=== PATIENT | male | born 1980 | race American Indian/Alaskan Native ===

== ENCOUNTER 2018-07-08 23:20 | Emergency (ER) | payer OTHER ==
[2018-07-08 23:35] VITALS: BP 135/86; PULSE 77; RESP 16; TEMP 98.1; O2SAT 98
--- NOTE | 2018-07-09 00:43 | C.PDOC ---
History Of Present Illness 38 year old male presents to the ER after he tripped while going up the stairs and landed on his right arm. Patient is now complaining of pain to the right wrist and hand. Denies weakness, numbness, or other complaints. Time Seen by Provider: 07/08/18 23:43 Chief Complaint (Nursing): Upper Extremity Problem/Injury History Per: Patient History/Exam Limitations: no limitations Onset/Duration Of Symptoms: Hrs Current Symptoms Are (Timing): Still Present Exacerbating Factor(s): Movement Recent travel outside of the [place]: No Past Medical History Reviewed: Historical Data, Nursing Documentation, Vital Signs Vital Signs: Last Vital Signs Temp 98.1 F 07/08/18 23:30 Pulse 77 07/08/18 23:30 Resp 16 07/08/18 23:30 BP 135/86 07/08/18 23:30 Pulse Ox 98 07/08/18 23:30 Family History: States: Unknown Family Hx - Social History Hx Alcohol Use: Yes Hx Substance Use: No - Immunization History Hx Influenza Vaccination: No Hx Pneumococcal Vaccination: No Review Of Systems Musculoskeletal: Positive for: Other (Left wrist pain, Left hand pain) Neurological: Negative for: Weakness, Numbness Physical Exam - Physical Exam Appears: Non-toxic Skin: Normal Color, Warm, Dry Head: Atraumatic, Normacephalic Eye(s): bilateral: Normal Inspection Extremity: Capillary Refill (<2 seconds), Other (Tenderness and swelling to radial aspect of left wrist dorsally. ROM of wrist causes pain. No snuffbox tenderness. ) Pulses: Left Radial: Normal, Right Radial: Normal Neurological/Psych: Oriented x3, Normal Speech, Normal Motor, Normal Sensation ED Course And Treatment O2 Sat by Pulse Oximetry: 98 (Room air) Pulse Ox Interpretation: Normal - Other Rad Left wrist x-ray X-Ray: Interpreted by Me, Viewed By Me Interpretation: Questionable scaphoid fracture Progress Note: Left wrist x-ray ordered, results showed a questionable scaphoid fracture. Motrin administered for pain. Patient placed in volar splint with sling by CP and checked by me, will discharge home with instructions to follow up with hand specialist. Disposition Counseled Patient/Family Regarding: Diagnosis, Need For Followup, Rx Given - Disposition Referrals: Francisca Saldana MD [Staff Provider] - Disposition: HOME/ ROUTINE Disposition Time: 00:44 Condition: GOOD Additional Instructions: Please follow up with Hand surgeon MOTRIN FOR PAIN KEEP ARM ELEVATED RETURN TO ER IF WORSE Prescriptions: Ibuprofen [Motrin Tab] 800 mg PO QID #20 tab Instructions: Hand Fracture (DC) Forms: [employer] (Wallisian) Print Language: HONDURAN - Clinical Impression Clinical Impression: Hand fracture, right - PA / [employer] / Resident Statement MD/DO has reviewed & agrees with the documentation as recorded. - Scribe Statement The provider has reviewed the documentation as recorded by the Scriblucy Denson All medical record entries made by the Lupeiblucy were at my direction and personally dictated by me. I have reviewed the chart and agree that the record accurately reflects my personal performance of the history, physical exam, medical decision making, and the department course for this patient. I have also personally directed, reviewed, and agree with the discharge instructions and disposition.
--- NOTE | 2018-07-09 08:48 | RAD ---
Date of service: 07/09/2018 PROCEDURE: Right Wrist Radiographs. HISTORY: R/O FX POST FALL COMPARISON: None. FINDINGS: BONES: Tiny ossific density adjacent to the radial aspect of the scaphoid. Uncertain significance. No marci scaphoid fracture appreciated otherwise. No other fracture appreciated elsewhere. JOINTS: Normal. No dislocation. SOFT TISSUES: Normal. OTHER FINDINGS: None. IMPRESSION: Tiny ossific density adjacent to the radial aspect of the scaphoid of uncertain significance. Cannot rule out avulsion fracture. Correlate clinically.
== END 2018-07-09 00:54 | disposition home or self-care (01) ==
LOC: C.ER 23:20
DX: S62.91XA Unspecified fracture of right hand, initial encounter for closed fracture (principal); W01.0XXA Fall on same level from slipping, tripping and stumbling without subsequent striking against object, initial encounter